=== PATIENT | female | born 1935 ===

== ENCOUNTER 2020-05-03 14:33 | Outpatient (CLI) | payer OTHER ==
[~2020-05-03 14:33] MED LIST: SYNTHROID112 MCG PO
[2020-05-04] MEDS ORDERED: MACROBID 100 M100 MG PO ×2 (11:18)
[2020-05-04] MEDS ORDERED: ULTRACET PO ×2 (11:21)
== END 2020-05-03 15:00 | disposition home or self-care (01) ==
LOC: LAB 14:33
PROVIDERS: ATTEND Obstetrics & Gynecology Gynecology
DX: Z20.828 Contact with and (suspected) exposure to other viral communicable diseases (principal)

== ENCOUNTER 2020-05-04 07:00 | Day surgery (SDC) | payer OTHER ==
[2020-05-04] MEDS ORDERED: MACROBID 100 M100 MG PO ×2 (11:18)
[2020-05-04] MEDS ORDERED: ULTRACET PO ×2 (11:21)
== END 2020-05-04 14:05 | disposition home or self-care (01) ==
LOC: CIR.AMB 07:00
PROVIDERS: ATTEND Obstetrics & Gynecology Gynecology
DX: N81.3 Complete uterovaginal prolapse (principal); Z20.822 Contact with and (suspected) exposure to COVID-19